=== PATIENT | female | born 1955 | race Caucasian/White ===

== ENCOUNTER 2018-08-02 14:00 | Emergency (ER) | payer OTHER, MEDICAID, SELFPAY ==
--- NOTE | 2018-08-02 14:05 | DI.CT.S_ITS ---
PROCEDURE: CT HEAD/BRAIN WO CON INDICATIONS: slurring etoh fall TECHNIQUE: Noncontrast 4.5 mm thick angled axial sections acquired from the foramen magnum to the vertex, with coronal and sagittal reformats. For radiation dose reduction, the following was used: automated exposure control, adjustment of mA and/or kV according to patient size. COMPARISON: None. FINDINGS: Image quality: Suboptimal, related to motion artifact along the superior aspect of the head. CSF spaces: Basal cisterns are patent. No extra-axial fluid collections. Ventricles are normal in size and shape. There is mild parenchymal volume loss. Brain: No midline shift. No intracranial masses or hemorrhage. Coello-white matter interface is normal. Skull and face: Calvarium and visualized facial bones are intact, without suspicious lesions. Sinuses: Visualized sinuses and mastoids are clear. IMPRESSION: Limited CT, related to motion artifact. No acute intracranial hemorrhage. Dictated by: Shawn Dent M.D. on 08/02/2018 at 13:29 Approved by: Shawn Dent M.D. on 08/02/2018 at 13:31
[2018-08-02 14:11] VITALS: BP 129/60; PULSE 79; RESP 22; O2SAT 97
[2018-08-02 14:47] LABS: Basophils Percent Auto 1.6 % (0-2); Eosinophils Percent Auto 0.6 % (2-4); Hematocrit 40.8 % (36-46); Lymphocytes Percent Auto 42.4 % (25-40); Mean Corpuscular HGB Conc 34.4 % (30-36); Mean Corpuscular Hemoglobin 37.4 PG (26-34); Mean Corpuscular Volume 108.9 fL (80-100); Monocytes Percent Auto 10.8 % (3-14); Neutrophils Absolute Auto 2200 /uL (3000-5900); Neutrophils Percent Auto 44.6 % (50-75); Platelet Count 148 X10^3/uL (150-400); Red Blood Cell Count 3.74 X10^6/uL (4.0-5.2); Red Cell Distribution Width 14.7 % (11.6-14.8); White Blood Cell Count 4.9 X10^3/uL (4.5-11.0)
[2018-08-02 14:49] LABS: Add Manual Diff / Slide Review SLIDE REVIEW
[2018-08-02 14:56] LABS: Prothrombin Time 10.2 SECONDS (10.1-12.7)
[2018-08-02 14:58] LABS: PTT Partial Thromboplastin Tim 33 SECONDS (26.4-36.2)
[2018-08-02 15:00] LABS: Alanine Aminotransferase 41 IU/L (9-52); Albumin 4.3 g/dL (3.5-5.0); Albumin Globulin Ratio 1.6 (1.0-2.8); Alkaline Phosphatase 75 U/L (38-126); Aspartate Aminotransferase 79 IU/L (14-36); BUN Creatinine Ratio 4.3 (6-22); Bilirubin Total 0.6 mg/dL (0.2-1.3); Blood Urea Nitrogen 3 mg/dL (7-17); Calcium 8.3 mg/dL (8.4-10.2); Carbon Dioxide 27 mmol/L (22-32); Chloride 101 mmol/L (98-107); Estimated Glomerular Filt Rate > 60.0 mL/min (>60); Globulin 2.7 g/dL (1.7-4.1); Glucose 105 mg/dL (80-110); Lipase 167 U/L (23-300); Sodium 144 mmol/L (137-145)
[2018-08-02 15:08] LABS: HEMOLYSIS 95 (0-50)
[2018-08-02 15:09] LABS: Ethanol (ETOH) 418 mg/dL
[2018-08-02 15:10] LABS: Potassium 4.5 mmol/L (3.4-5.1)
[2018-08-02 15:15] LABS: Macrocytosis 1+
--- NOTE | 2018-08-02 16:00 | PC.NURSE ---
Pt pulled IV out and states she is ready to leave. I'M a doctor. I think I know. returns to bedside and is s/w pt about staying
--- NOTE | 2018-08-02 16:21 | ED_ITS ---
HPI - Fall General Chief Complaint: Fall Stated Complaint: GLF Time Seen by Provider: 08/02/18 14:05 Source: patient, family and EMS Mode of arrival: EMS Limitations: altered mental status ( intoxication) History of Present Illness HPI Narrative: patient is a 63-year-old female who presents after a ground level fall. Her heard her fall. She was noted to have slurring of speech and alcohol on her breath by EMS. She has no focal deficits she is not on antiplatelet or anticoagulation medication. She has no other injuries at this time. According to both and patient she was diagnosed with stage III breast cancer number of months ago she has not yet followed up. She remains extremely scared in denial about this diagnosis. Her has been trying to get her to go to the doctor's office however she will not go. Her drinking has likely increased because of this. MD complaint: fall Onset (ago): minute(s) Fall from: standing Fall witnessed: no Place fall occurred: home Loss of consciousness: none Context: alcohol use Related Data Home Medications Medication Instructions Recorded Confirmed alprazolam 0.25 mg PO DIRECTED 08/02/18 08/02/18 gabapentin 300 mg PO TID 08/02/18 08/02/18 Allergies Allergy/AdvReac Type Severity Reaction Status Date / Time Penicillins [PENICILLINS] Allergy Intermediate RASH, Unverified 12/28/17 12:33 NAUSEA, HIVES codeine [CODEINE] Allergy Mild RASH/ITCHIN Unverified 12/28/17 12:33 G lactose Allergy Intermediate GI upset. Uncoded 12/28/17 12:33 Does tolerate cooked milk products Review of Systems Review of Systems All systems reviewed & are unremarkable except as noted in HPI and below Constitutional Denies chills, Denies fever(s), Denies lethargy and Denies weakness Cardiovascular Denies chest pain, Denies irregular heart rhythm, Denies lightheadedness, Denies palpitations, Denies dyspnea, Denies dyspnea on exertion and Denies orthopnea Respiratory Denies cough, Denies dyspnea, Denies dyspnea on exertion and Denies wheezing Gastrointestinal Gastrointestinal: Denies abdominal pain, Denies change in bowel habits, Denies diarrhea, Denies nausea and Denies vomiting Musculoskeletal Denies back pain, Denies muscle weakness, Denies numbness and Denies tingling Integumentary/Breasts Denies pruritus, Denies erythema, Denies rash and Denies wounds Neurologic Denies numbness, Denies tingling and Denies weakness Psychiatric Reports as per HPI Endocrine Denies palpitations Allergic/Immunologic Denies wheezing Exam Initial Vital Signs Initial Vital Signs: Vital Signs Pulse Rate 79 08/02/18 14:11 Respiratory Rate 22 08/02/18 14:11 Blood Pressure 129/60 08/02/18 14:11 Pulse Oximetry 97 08/02/18 14:11 Const General: cooperative and intoxicated appearing ( slurring of speech) Nutritional Appearance: average body habitus Orientation: alert and awake [facility] Head: normal to inspection, normocephalic, atraumatic, No abrasion, No Moreno's sign, No palpable skull fracture and No scalp lesion Ears: hearing grossly normal bilaterally Nose: external nose normal Mouth: oral mucosae normal Eyes General: appearance normal, both eyes and all related structures Pupils: PERRL EOM: EOM intact bilaterally Neck Neck: normal visual inspection, full ROM, no meningeal signs and trachea midline Chest Chest: normal inspection of the chest Resp Effort & Inspection: normal respiratory effort and able to speak in complete sentences Auscultation: clear to auscultation bilaterally, no rales and no rhonchi Cardio Rate: regular rate Rhythm: regular rhythm Heart Sounds: S1 normal and S2 normal GI Palpation: soft, No firm, No tender and No ascites Back/Spine/Pelvis Back: normal to inspection, No back tenderness and No crepitance Skin General: no rashes or lesions noted, No jaundice and No petechiae Neuro General: alert, awake and oriented x3 Cranial Nerves: CN's II-XI intact bilaterally Speech: abnormal speech ( slurring) Extrem General: normal to inspection, full ROM and capillary refill normal Right upper extremity: normal to inspection Left upper extremity: normal to inspection Right lower extremity: normal to inspection Left lower extremity: normal to inspection [facility] Medical History Alcoholism (Acute) Breast cancer (Acute) Social History alcohol intake: current Course Orders Ordered: ED Orders 08/02/18 14:05 CT head/brain wo con Stat EKG-12 Lead Stat 08/02/18 14:37 Complete Blood Count AUTO DIFF Stat Comprehensive Metabolic Panel Stat Ethanol (ETOH) Stat Lipase Stat Partial Thromboplastin Time Stat Prothrombin Time INR Stat Vital Signs - 8 hr 08/02/18 14:11 08/02/18 16:30 Pulse Rate 79 76 Respiratory Rate 22 15 Blood Pressure 129/60 120/74 Pulse Oximetry 97 99 MDM - Fall Medical Records Attestation: I reviewed the patient's medical records. Lab Data Attestation: I reviewed the patient's lab results. Result diagrams: 08/02/18 14:37 08/02/18 14:37 Lab Results 08/02/18 08/02/18 08/02/18 Range/Units 14:37 14:37 14:37 WBC 4.9 (4.5-11.0) X10^3/uL RBC 3.74 L (4.0-5.2) X10^6/uL Hgb 14.0 (12.0-16.0) g/dL Hct 40.8 (36-46) % MCV 108.9 H (80-100) fL MCH 37.4 H (26-34) PG MCHC 34.4 (30-36) % RDW 14.7 (11.6-14.8) % Plt Count 148 L (150-400) X10^3/uL Neut % (Auto) 44.6 L (50-75) % Lymph % (Auto) 42.4 H (25-40) % Caroline % (Auto) 10.8 (3-14) % Eos % (Auto) 0.6 L (2-4) % Baso % (Auto) 1.6 (0-2) % Neut # (Auto) 2200 L (2060-5836) /uL RBC Morphology See below Macrocytosis 1+ H PT 10.2 (10.1-12.7) SECONDS INR 1.0 (0.9-1.3) APTT 33 (26.4-36.2) SECONDS Sodium 144 (137-145) mmol/L Potassium 4.5 (3.4-5.1) mmol/L Chloride 101 (98-107) mmol/L Carbon Dioxide 27 (22-32) mmol/L BUN 3 L (7-17) mg/dL Creatinine 0.70 (0.52-1.04) mg/dL Estimated GFR > 60.0 (>60) mL/min BUN/Creatinine Ratio 4.3 L (6-22) Glucose 105 (80-110) mg/dL Calcium 8.3 L (8.4-10.2) mg/dL Total Bilirubin 0.6 (0.2-1.3) mg/dL AST 79 H (14-36) IU/L ALT 41 (9-52) IU/L Alkaline Phosphatase 75 (38-126) U/L Total Protein 7.0 (6.3-8.2) g/dL Albumin 4.3 (3.5-5.0) g/dL Globulin 2.7 (1.7-4.1) g/dL Albumin/Globulin Ratio 1.6 (1.0-2.8) Lipase 167 (23-300) U/L Ethyl Alcohol 418 H* mg/dL Imaging Data CT scan - head: Radiologist's impression: Radiology report: Limited CT related to motion artifact. No acute intracranial hemorrhage. For some reason I see report on the PACS system but it did not transfer over to [facility]. ECG Data Attestation: I personally reviewed and interpreted this ECG as follows: Prior ECG tracings: available for review Interpretation: sinus rhythm rate [address] changes no T-wave inversions here interval 164 QRS 96 QTC 417 similar to previous EKG MDM Narrative Medical decision making narrative: discussed at length with and patient I strongly recommended that she decrease her drinking and get to an oncologist so she can start treatment for her breast cancer. She now has a steady gait and is able to walk around the emergency department. is willing to take her home. Discharge Plan Departure Patient Disposition: Home Clinical Impression: Alcohol intoxication Discharge Date/Time: 08/02/18 16:32 Interventions: ED Discharge Assessment Last Done: 08/02/18 16:30 Instructions: Alcohol Use Disorder Activity Restrictions/Additional Instructions: *You have been diagnosed with ALCOHOL INTOXICATION *What to do: HIGHLY RECOMMENDED THAT YOU SEE HER DOCTORS IN REGARDS TO YOUR BREAST CANCER IN [place]OP[place] TO GET THIS UNDER CONTROL BEFORE IT BECOMES TOO LATE. ALSO RECOMMEND TO DECREASE OR STOP HERE DRINK *Continue to take medications as directed *Follow up with your primary care provider in 2-3 days *Return to ER if you should have INCREASED FALLS, SHORTNESS OF BREATH, CONFUSION or any new, worsening or concerning symptoms Prescriptions: No Action alprazolam 0.25 mg tablet 0.25 mg PO DIRECTED RF: 0 gabapentin 300 mg capsule 300 mg PO TID RF: 0
[2018-08-02 16:30] VITALS: BP 120/74; PULSE 76; RESP 15; O2SAT 99
== END 2018-08-02 16:32 | disposition home or self-care (01) ==
PROVIDERS: Emergency Provider Emergency Medicine
DX: F10.929 Alcohol use, unspecified with intoxication, unspecified (principal); W18.30XA Fall on same level, unspecified, initial encounter
CPT/HCPCS: 70450; 80053; 80320; 83690; 85025; 85610; 85730; 93005; 99283; 99285

== ENCOUNTER 2018-08-03 11:47 | Emergency (ER) | payer OTHER, MEDICAID, SELFPAY ==
[2018-08-03 11:59] VITALS: BP 160/87; PULSE 84; RESP 20; TEMP 36.6; O2SAT 97; BMI 22.8
--- NOTE | 2018-08-03 12:07 | ED.ALCOHOL ---
HPI - Alcohol <PABLO Crow - Last Filed: 08/03/18 21:42> General Chief Complaint: Toxicology Problem Stated Complaint: ETOH Intoxication Time Seen by Provider: 08/03/18 12:07 Source: patient Mode of arrival: ambulatory Limitations: no limitations History of Present Illness HPI narrative: 63-year-old female with history of breast cancer who is a nonsmoker here for complaint of alcohol abuse. She states she has been drinking heavily as of lately as she states she is having a hard time dealing with the diagnosis of breast cancer. She was seen here yesterday for similar symptoms. She was released home. She states she currently does have an appointment with [facility] and will follow up with them as she has not been seek treatment for her breast cancer. She states she is having difficulty coping with her medical conditions and life in general. She reports that she had several drinks this morning. She also uses alprazolam for anxiety and has states she has been doubling up on the alprazolam as of lately. She denies any suicidal ideation. She denies any homicidal ideation. She is not complaining of any physical complaints at this time. Related Data Home Medications Medication Instructions Recorded Confirmed alprazolam 0.25 mg PO DIRECTED 08/02/18 08/03/18 gabapentin 300 mg PO TID 08/02/18 08/03/18 Allergies Allergy/AdvReac Type Severity Reaction Status Date / Time Penicillins [PENICILLINS] Allergy Intermediate RASH, Verified 08/03/18 12:02 NAUSEA, HIVES codeine [CODEINE] Allergy Mild RASH/ITCHIN Verified 08/03/18 12:02 G lactose Allergy Intermediate GI upset. Uncoded 12/28/17 12:33 Does tolerate cooked milk products Review of Systems <PABLO Crow - Last Filed: 08/03/18 21:42> Constitutional Comments: Alcohol intoxication and difficulty coping Eyes Denies change in vision, Denies eye discharge, Denies irritation and Denies loss of vision ENT Ears, Nose, Mouth, and Throat: Denies change in voice, Denies neck pain and Denies sore throat Cardiovascular Denies chest pain, Denies irregular heart rhythm, Denies lightheadedness, Denies palpitations, Denies dyspnea, Denies dyspnea on exertion and Denies orthopnea Respiratory Denies cough, Denies dyspnea, Denies dyspnea on exertion and Denies wheezing Gastrointestinal Gastrointestinal: Denies abdominal pain, Denies change in bowel habits, Denies diarrhea, Denies nausea and Denies vomiting Genitourinary Denies hematuria, Denies flank pain, Denies urinary incontinence and Denies urinary urgency Musculoskeletal Denies neck pain Integumentary/Breasts Denies pruritus, Denies erythema, Denies rash and Denies wounds Neurologic Denies loss of vision Psychiatric Reports as per HPI Endocrine Denies palpitations Hematologic/Lymphatic Denies easy bruising Allergic/Immunologic Denies wheezing Exam <PABLO Crow - Last Filed: 08/03/18 21:42> Initial Vital Signs Initial Vital Signs: Vital Signs Temperature 97.8 F 08/03/18 11:59 Pulse Rate 84 08/03/18 11:59 Respiratory Rate 20 08/03/18 11:59 Blood Pressure 160/87 H 08/03/18 11:59 Pulse Oximetry 97 08/03/18 11:59 Const General: cooperative, well developed and intoxicated appearing Nutritional Appearance: well nourished Orientation: alert, awake, oriented x3 and not confused HENMN Mouth: oral mucosae normal and moist mucous membranes Eyes Conjunctivae: conjunctivae normal Sclera: sclerae normal Pupils: PERRL EOM: EOM intact bilaterally Resp Effort & Inspection: normal respiratory effort, able to speak in complete sentences, no respiratory distress and no use of accessory muscles Auscultation: clear to auscultation bilaterally, no rales, no rhonchi and no wheezes Cardio Rate: regular rate Rhythm: regular rhythm Heart Sounds: no click, no gallops, no murmurs and no rubs Pulses: normal peripheral pulses GI Inspection: non-distended Palpation: soft, no hepatosplenomegaly, No guarding, No pulsatile mass and No tender Auscultation: normal bowel sounds Neuro General: alert, oriented x3, gait normal and no focal motor deficits Speech: speech normal Extrem General: full ROM, no clubbing, cyanosis or edema, no pedal edema and no calf tenderness Psych Appearance: grossly normal Mental Status: other Speech and Movement: slurred speech Mood: other Attitude: cooperative Thought Content: no homicidality and suicidality <Nemo Gonzales DO - Last Filed: 08/04/18 12:55> Initial Vital Signs Initial Vital Signs: Vital Signs Temperature 97.8 F 08/03/18 11:59 Pulse Rate 84 08/03/18 11:59 Respiratory Rate 20 08/03/18 11:59 Blood Pressure 160/87 H 08/03/18 11:59 Pulse Oximetry 97 08/03/18 11:59 Course <PABLO Crow - Last Filed: 08/03/18 21:42> Orders Ordered: ED Orders 08/03/18 13:15 Urine Drug Screen, Rapid Stat 08/03/18 13:28 Ethanol (ETOH) Stat Vital Signs - 8 hr 08/03/18 11:59 Temperature 97.8 F Pulse Rate 84 Respiratory Rate 20 Blood Pressure 160/87 H Pulse Oximetry 97 <Nemo Gonzales DO - Last Filed: 08/04/18 12:55> Orders Ordered: ED Orders 08/03/18 13:15 Urine Drug Screen, Rapid Stat 08/03/18 13:28 Ethanol (ETOH) Stat Vital Signs - 8 hr 08/03/18 11:59 Temperature 97.8 F Pulse Rate 84 Respiratory Rate 20 Blood Pressure 160/87 H Pulse Oximetry 97 MDM - Alcohol <PABLO Crow - Last Filed: 08/03/18 21:42> Lab Data Labs: Lab Results 08/03/18 08/03/18 Range/Units 13:15 13:28 Urine Opiates Screen Negative (Negative) Ur Oxycodone Screen Negative (Negative) Urine Methadone Screen Negative (Negative) Ur Barbiturates Screen Negative (Negative) U Tricyclic Antidepress Negative (Negative) Ur Phencyclidine Scrn Negative (Negative) Ur Amphetamines Screen Negative (Negative) U Methamphetamines Scrn Negative (Negative) Ur MDMA Scrn (Ecstasy) Negative (Negative) U Benzodiazepines Scrn Positive H (Negative) Urine Cocaine Screen Negative (Negative) U Marijuana (THC) Screen Positive H (Negative) Ethyl Alcohol 296 mg/dL MDM Narrative Medical decision making narrative: Patient blood alcoholl today was 296 she was in the emergency room a few hours after this level was obtained. She was able to speak to social workers given resources for counseling and she states that she will seek these out. Discussed with patient following up with [facility] for further treatment and evaluation patient states that she will pursue that as well. Patient states she feels like she wants to go home now. She is able to ambulate without any complications. She appears to be able to make sound decisions. Family is with her and can take her home and will be able to look out for her tonight at home. She is released for further evaluation. Follow up with primary care provider. <Nemo Gonzales, - Last Filed: 08/04/18 12:55> Lab Data Labs: Lab Results 08/03/18 08/03/18 Range/Units 13:15 13:28 Urine Opiates Screen Negative (Negative) Ur Oxycodone Screen Negative (Negative) Urine Methadone Screen Negative (Negative) Ur Barbiturates Screen Negative (Negative) U Tricyclic Antidepress Negative (Negative) Ur Phencyclidine Scrn Negative (Negative) Ur Amphetamines Screen Negative (Negative) U Methamphetamines Scrn Negative (Negative) Ur MDMA Scrn (Ecstasy) Negative (Negative) U Benzodiazepines Scrn Positive H (Negative) Urine Cocaine Screen Negative (Negative) U Marijuana (THC) Screen Positive H (Negative) Ethyl Alcohol 296 mg/dL Discharge Plan Departure Patient Disposition: Home Clinical Impression: Alcohol intoxication Discharge Date/Time: 08/03/18 16:13 Interventions: ED Discharge Assessment Last Done: 08/03/18 16:11 Instructions: Alcohol and Stress: There are Safer Ways to Reading Activity Restrictions/Additional Instructions: Utilize resources provided by social media marketing specialist for counseling help. Follow up with primary care provider. Follow-up with [facility] for further evaluation and treatment. For any worsening symptoms return to the emergency room. Recommend reducing amount alcohol use. For any worsening symptoms return to the emergency room. Prescriptions: No Action alprazolam 0.25 mg tablet 0.25 mg PO DIRECTED RF: 0 gabapentin 300 mg capsule 300 mg PO TID RF: 0 Referrals: [facility] [Provider Group] <Nemo Gonzales, - Last Filed: 08/04/18 12:55> Cosign ED Attending Valarieature Attestation: I was immediately available in the department for consultation. Documentation has been reviewed. I agree with assessment and plan.
--- NOTE | 2018-08-03 13:00 | PC.NURSE ---
Attempt to obtain breath ETOH. Pt declines with multiple attempts. With Hellen SINGH, retry. Pt unable to exhale for the needed period of time.
[2018-08-03 13:25] LABS: Urine Amphetamines Negative (Negative); Urine Barbiturates Negative (Negative); Urine Benzodiazepines Positive (Negative); Urine Cocaine Negative (Negative); Urine MDMA Negative (Negative); Urine Methadone Negative (Negative); Urine Methamphetamines Negative (Negative); Urine Morphine/Opi cutoff 2000 Negative (Negative); Urine Oxycodone Negative (Negative); Urine Phencyclidine Negative (Negative); Urine Tetrahydrocannabinol Positive (Negative); Urine Tricyclic Antidepressant Negative (Negative)
[2018-08-03 13:47] LABS: Ethanol (ETOH) 296 mg/dL
--- NOTE | 2018-08-03 16:21 | CM.SWNOTE ---
Presenting Problem: Pt is a 63 yo female with a BAL of 298 who came to the ED after calling her insurance company requesting information on proton therapy. She stated that she believes that they called 911 because she was drinking and has stage 3 breast cancer. She identified several stressors which were mentioned in other documentation. Support System/ providers Pt identified her 4 children; She mentioned Migdalia by name, stating hse lives in [place] and works at [employer]. Pt lives with Anderson SMITH and has been with him for 5 years. Pt reported that her Oncologist is Dr Genny Bailey, PCP Dr Judy Nolan ( [facility]). She has an appt with [facility]. Stressors/ ongoing concerns: Pt reported that she does not want to get tx until mid-September as she has plans for the holidays and trips to [place] and [place] planned. It was unclear whether pt was diagneosed 1 year ago or a few months ago. SHe reported that she received the dx a year ago, but kept it to herself as she did not want to deal with it or concern others. RECREATION FACILITIES SUPERVISOR inquired how she has dealt with cries in the past. Pt reported that she does nto feel as though she has had anything as difficult as this as feels as though she had a breaking point. She was tearful and stated that she did n ot know how to cope. Several times she asked what would you do? Pt was very clear about her desire to make her own decisions, not get treatment until mid-September, and yet stated her fear of the treatment and worry that she would not live. RECREATION FACILITIES SUPERVISOR pointed out inconsistencies in that she stated that she wants to live, but is waiting on the treatment after being diagnosed with stage 3 breast cancer. Interventions: RECREATION FACILITIES SUPERVISOR used a combination of compassionate and active listening, motivational interviewing and CBT to challenge some of her thinking. RECREATION FACILITIES SUPERVISOR also assisted with problem solving and provided resources. RECREATION FACILITIES SUPERVISOR discussed and demonstrated breathing techniques, but pt could not focus on this and was not interested. Substance Abuse Discussed pt's use and abuse of ETOH. She reported that in the last 7-10 days she was drinking 7-10 drinks per day. This has not been verified and it is not known how much pt has been drinking. She denied a hx of withdrawal issues, seizures or DTs. Pt's daughter called and informed SW that pt had not used ETOH in 8 years, but in the last couple of days has drunk excessively. Her assessment was that pt is using this as a coping mechanism. [facility] did not acknolwedge that pt was in the ED so this caller provided this information without confirmation that her mother was here. Pt stated that she will not be drinking upon return home. Mental Status Exam: Pt was A/O x 3. Her mood was sad with frequent tears. Affect was labile. Speech was normal for rate and rhythm. Story was inconsistent, but this was due to her being under the influence of ETOH. Pt denied SI and HI. Memory not assessed, but seemed able to give a fairly believable hx. Plan: Pt to return home with SO. She denied the offer for inpt rehab. RECREATION FACILITIES SUPERVISOR was willing to contact the crisis center and to see if there was a bed in a detox facility, but pt declined the offer and went home. No further SW needs noted. Discharge Planning/Care Management ED Crisis Response Assessment Start: 08/03/18 16:08 Freq: Status: Active Protocol: Document 08/03/18 16:08 (Rec: 08/03/18 16:21 [id number]) ED Crisis Response Assessment FINANCE VICE PRESIDENT Assessment Type Substance Abuse Other Reason for FINANCE VICE PRESIDENT Referral Pt was in the ED yesterday due to a fall and BAL of 419. Today she returned as she stated that she called her insurance company asking who covered proton therapy and they sent 911. She said she believes it was due to her drinking. Staff referred as pt requested help dealing with stressors and was interested in inpt treatment. Referred by ED staff ( RN and provider) Presenting Problem Pt is a 63 yo female who arrived to ED by EMS. She reported that she has recently had numerous stressors which she described as a dx of stage 3 breast cancer, grandson with muscular dystrophy, former at for open heart sx, and a 16 year old grandaughter. Pt stated many times that she was scared. When [facility] inquired about this fear, she reported that she was scared of the treatment. Mental health diagnosis ETOH abuse, anxiety unspecified VOA/CMS check No Suicidal thoughts No Past Suicidal thoughts No Current Suicidal thoughts No Prior Suicide attempts No Current plan for self harm No Thoughts of harm to others No Past thoughts of harm to others No Current thoughts of harming others No Current plan to harm others No Current Risk factors Substance abuse Relevant Medical History Diagnosis of stage 3 breast cancer Crisis Plan Pt's SO came to pick her up. He did not identify any concern bringing her home. She allwoed RECREATION FACILITIES SUPERVISOR to share what we discussed; I informed hm that pt has agreed not to drink and advised him not to have ETOH in the home. It was unclear if he was willing or interested in doing this, but was in agreement with supporting her desire not to drink. Resources Provided Pt was provided with the name of a local therapist as she requested someone pedro Connellyes. SHe said she could pay out of pocket, but since hse has Medicaid RECREATION FACILITIES SUPERVISOR researched and fond someone who accepts her insurance. Pt was also given a handout on the Crisis Center, and a list of public mental health and subtance sbuse services in [facility]. Action taken Sent home: family/friends Additional Comment Pt denied any SI or any thought of self-harm.
== END 2018-08-03 16:13 | disposition home or self-care (01) ==
PROVIDERS: Emergency Provider Nurse Practitioner Family
DX: F10.929 Alcohol use, unspecified with intoxication, unspecified (principal)
CPT/HCPCS: 36415; 80305; 80320; 99282; 99283

== ENCOUNTER → 2018-08-15 10:34 | Outpatient (CLI) | payer OTHER, MEDICAID, SELFPAY ==
[2018-08-15 11:33] LABS: Basophils Percent Auto 1.2 % (0-2); Eosinophils Percent Auto 0.4 % (2-4); Hematocrit 41.1 % (36-46); Hemoglobin 13.9 g/dL (12.0-16.0); Lymphocytes Percent Auto 26.1 % (25-40); Mean Corpuscular HGB Conc 33.9 % (30-36); Mean Corpuscular Hemoglobin 37.3 PG (26-34); Monocytes Percent Auto 16.1 % (3-14); Neutrophils Absolute Auto 3500 /uL (3000-5900); Neutrophils Percent Auto 56.2 % (50-75); Platelet Count 333 X10^3/uL (150-400); Red Blood Cell Count 3.74 X10^6/uL (4.0-5.2); Red Cell Distribution Width 14.8 % (11.6-14.8); White Blood Cell Count 6.3 X10^3/uL (4.5-11.0)
[2018-08-15 11:49] LABS: Add Manual Diff / Slide Review SLIDE REVIEW
[2018-08-15 12:23] LABS: Macrocytosis 2+
[2018-08-15 12:42] LABS: Alanine Aminotransferase 32 IU/L (9-52); Albumin 4.2 g/dL (3.5-5.0); Albumin Globulin Ratio 1.6 (1.0-2.8); Alkaline Phosphatase 55 U/L (38-126); Aspartate Aminotransferase 32 IU/L (14-36); Bilirubin Total 0.3 mg/dL (0.2-1.3); Blood Urea Nitrogen 8 mg/dL (7-17); Calcium 9.4 mg/dL (8.4-10.2); Carbon Dioxide 28 mmol/L (22-32); Chloride 104 mmol/L (98-107); Estimated Glomerular Filt Rate > 60.0 mL/min (>60); Globulin 2.7 g/dL (1.7-4.1); Glucose 67 mg/dL (80-110); HEMOLYSIS < 15 (0-50); Potassium 5.2 mmol/L (3.4-5.1); Sodium 145 mmol/L (137-145); Total Protein 6.9 g/dL (6.3-8.2)
[2018-08-15 13:03] LABS: Thyroid Stimulating Hormone 1.05 uIU/mL (0.47-4.68)
[2018-08-15 13:31] LABS: Vitamin B12 440 pg/mL (239-931)
== END ==
PROVIDERS: Visit Provider Internal Medicine
DX: F10.10 Alcohol abuse, uncomplicated (principal); R42 Dizziness and giddiness
CPT/HCPCS: 36415; 80053; 82607; 84443; 85025

== ENCOUNTER → 2018-09-01 08:45 | Outpatient (CLI) | payer OTHER, MEDICAID, SELFPAY ==
--- NOTE | 2018-09-01 | DI.MG.S_ITS ---
BILATERAL DIGITAL DIAGNOSTIC MAMMOGRAM 3D/2D: 09/01/2018 CLINICAL: Baseline exam. Right breast pain and lump. Family history of breast cancer. Right breast lump and pain noted by the patient for approximately 5 months. The lump is described as a PEA. The pain is described as SHARP. The patient states the there is no skin abnormality or discharge from either breast. No prior exams were available for comparison. The tissue of both breasts is heterogeneously dense. This may lower the sensitivity of mammography. There is a triangular marker overlying the skin of the upper outer right breast at the site of the patient's reported focal palpable painful abnormality. There is a 0.7 cm oval circumscribed mass in the upper outer right breast at middle depth near the overlying skin marker. IMPRESSION: INCOMPLETE: NEEDS ADDITIONAL IMAGING EVALUATION 0.7 cm oval circumscribed mass in the upper outer right breast at middle depth near the overlying skin marker at the site of the patient's reported focal palpable painful abnormality. Targeted diagnostic ultrasound recommended for further evaluation, which will be performed immediately following this exam. This exam was interpreted at Station ID: [id number]. NOTE: For mammograms, a report in lay terms will be sent to the patient. Approximately 15% of breast malignancies will not be visualized mammographically. In the management of a palpable breast mass, a negative mammogram must not discourage biopsy of a clinically suspicious lesion. Electronically Signed By: Randall Isaacs M.D. ecl/:09/01/2018 11:31:55 letter sent: Additional Imaging Needed ACR BI-RADS Category 0: Incomplete [id number]
--- NOTE | 2018-09-01 | DI.US.S_ITS ---
LIMITED ULTRASOUND OF RIGHT BREAST AND AXILLA: 09/01/2018 CLINICAL: Tender palpable right breast lumps (please note that at the time of diagnostic mammography the patient reported one location but indicated multiple locations during diagnostic ultrasound). Baseline exam. Right breast pain and lump. Family history of breast cancer. Right breast lump and pain noted by the patient for approximately 5 months. The lump is described as a PEA. The pain is described as SHARP. The patient states the there is no skin abnormality or discharge from either breast. Comparison is made to exam dated: 09/01/[address] [facility]. Real-time and Doppler ultrasound of the right breast upper outer quadrant and axilla regions were performed. Coello scale images of the real-time examination were reviewed. Targeted ultrasound was performed in the region of the patient's reported focal painful palpable abnormalities in the upper outer right breast. These are described as being at the 10 o'clock position 4 cm from the nipple, 11 o'clock position 5 cm from the nipple, 9:30 position position 12 cm from the nipple, and at 11 o'clock position 8 cm from the nipple. No underlying breast mass or abnormality is identified. Targeted ultrasound of the right axilla demonstrates no right axillary lymphadenopathy. There is a 0.7 x 0.6 x 0.2 cm oval circumscribed mass in the right breast at 10:30 position 9 cm from the nipple that demonstrates a possible fatty hilum, mildly increased through transmission/posterior acoustic enhancement, and no vascularity on Doppler ultrasound. This corresponds to the 0.7 cm mass the upper outer right breast at middle depth seen on diagnostic mammography. IMPRESSION: PROBABLY BENIGN 1) No ultrasound findings to explain patient's reported multiple focal painful palpable abnormalities in the upper outer quadrant of the right breast. Recommend clinical follow-up for further evaluation and management of the patient's reported symptoms. 2) There is a 0.7 cm probable intramammarly lymph node versus complicated cyst in the right breast at 10:30 position 9 cm from the nipple, which is probably benign. A follow-up diagnostic mammogram and targeted ultrasound in 6 months is recommended to demonstrate stability. The patient is advised to monitor her breasts and to return sooner for re-evaluation should she feel anything grow or change. This exam was interpreted at Station ID: [id number]. Electronically Signed By: Randall Isaacs M.D. ecl/:09/01/2018 12:05:58 letter sent: Followup Recommended Ultrasound BI-RADS: 3 Probably benign
== END ==
PROVIDERS: PCP Internal Medicine; Visit Provider Internal Medicine
DX: R92.8 Other abnormal and inconclusive findings on diagnostic imaging of breast (principal); N63.11 Unspecified lump in the right breast, upper outer quadrant; N64.4 Mastodynia; Z80.3 Family history of malignant neoplasm of breast
CPT/HCPCS: 76642; 77066; G0279

== ENCOUNTER 2019-03-04 21:23 | Emergency (ER) | payer OTHER, MEDICAID, SELFPAY ==
[2019-03-04] VITALS (9 sets, daily range): BP systolic 126–164; BP diastolic 56–97; PULSE 95–110; RESP 16–23; TEMP 37.1; O2SAT 97–100
[2019-03-04] MEDS: ALBUTEROL 2.5 MG/3 ML NEB (ADULT) 5 MG INH (21:25)
[2019-03-04] MEDS: EPINEPHrine 1 MG/ML AMPUL 0.3 MG IM (21:30)
[2019-03-04] MEDS: FAMOTIDINE 20 MG/50 ML PIGGYBACK 200 MG IV (21:33)
[2019-03-04] MEDS: SODIUM CHLORIDE 0.9% 1,000 ML 1000 ML IV (21:33)
[2019-03-04] MEDS: methylPREDNISolone 125 MG/2 ML VIAL IV (21:33)
[2019-03-04] MEDS: ONDANSETRON 4 MG/2 ML INJ IV (21:36)
--- NOTE | 2019-03-04 21:51 | PC.NURSE ---
Pt continues to have copious amounts of mucous shes spitting out. Voice at times sounds wet from mucuos
--- NOTE | 2019-03-04 22:32 | PC.NURSE ---
Pt continued to state wanting to throw up to help her feel better. Stuck her finger in her mouth and had 1 episode of emesis. Emesis mostly mucous with small amount of food. Reports still feeling nausea but is now longer stating she wants to throw up. Voice is less garbled. erythmia improving. swelling decreased to lower lip and right side of lower jaw. Tongue continues with swelling but pt states feels to be improving. lungs clear
--- NOTE | 2019-03-04 22:40 | ED_ITS ---
HPI - Allergic Reaction General Chief complaint: Allergic Reaction Stated complaint: Allergic Reaction Time Seen by Provider: 03/04/19 21:27 Source: EMS Mode of arrival: EMS Limitations: no limitations History of Present Illness HPI narrative: The patient is a 65-year-old female who presents with allergic reaction. She had 1 shrimp immediately started swelling in her face and difficulty swallowing her secretions. She is also quite intoxicated. EMS state that she was refusing to come. She did get 50 mg IM Benadryl and IM epinephrine here unable to start a line due to her being combative. He denies having any allergic reaction before. She has obvious facial swelling and increased secretions. MD complaint: allergic reaction, hives and facial swelling Onset (ago): minute(s) Exposure: food (Term) Symptoms: facial swelling, lip swelling, difficulty swallowing, difficulty breathing, hoarseness and nausea Severity: severe Treatment prior to arrival: benadryl and epinephrine Previous Allergic Reaction History: none Related Data Previous Rx's Medication Instructions Recorded epinephrine 0.3 mg IM Q15M PRN #2 each 03/05/19 prednisone 50 mg PO DAILY #5 tab 03/05/19 Allergies Allergy/AdvReac Type Severity Reaction Status Date / Time shrimp Allergy Severe Anaphylaxis Verified 03/04/19 21:27 Penicillins Allergy Verified 03/04/19 21:27 Review of Systems Review of Systems ROS Unobtainable: All systems reviewed & are unremarkable except as noted in HPI and below Constitutional Denies chills, Denies fever(s), Denies lethargy and Denies weakness Eyes Denies change in vision, Denies eye discharge, Denies irritation and Denies loss of vision ENT Ears, Nose, Mouth, and Throat: Reports as per HPI Cardiovascular Denies chest pain, Denies irregular heart rhythm, Denies lightheadedness, Denies palpitations and Denies orthopnea Respiratory Reports as per HPI Gastrointestinal Gastrointestinal: Denies abdominal pain, Denies change in bowel habits, Denies diarrhea, Denies nausea and Denies vomiting Genitourinary Denies hematuria, Denies flank pain, Denies urinary incontinence and Denies urinary urgency Musculoskeletal Denies back pain, Denies muscle weakness, Denies numbness and Denies tingling Integumentary/Breasts Reports skin swelling (Facial) Neurologic Denies loss of vision, Denies numbness, Denies tingling and Denies weakness Endocrine Denies palpitations PFSH Medical History Patient denies significant medical history (Acute) Social History (Updated 03/04/19 @ 22:52 by Nemo Gonzales DO) Smoking Status: Current every day smoker alcohol intake: current Social History Smoking Status: Current every day smoker alcohol intake: current Exam Initial Vital Signs Initial Vital Signs: Vital Signs Pulse Rate 106 H 03/04/19 21:23 Respiratory Rate 22 03/04/19 21:23 Blood Pressure 150/86 H 03/04/19 21:23 Pulse Oximetry 99 03/04/19 21:23 GENERAL: Patient is in moderate distress. She is anxious not managing her own secretions HEENT: Head atraumatic,EOMI, pupils reactive, face is swollen and erythematous more swollen on the right. She has swelling of her lips slight swelling of her tongue hoarseness of voice. Alcohol on breath CARDIOVASCULAR: Regular rate and rhythm without murmurs, rubs or gallops. RESPIRATORY: Breath sounds equal bilaterally, no wheezes rales or rhonchi. She continues to spit up all of her secretions. ABDOMEN: Soft, nontender. Normoactive bowel sounds all 4 quadrants. No guarding or rebound. EXTREMITIES: Normal range of motion, no clubbing or edema. Neurovascularly intact NEUROLOGICAL: Moving All extremities SKIN: Erythema and swelling noted on face no other hives or urticaria appreciated. Course Orders Ordered: Discontinued Medications Albuterol (Ventolin) 5 mg INH NOW ONE Stop: 03/04/19 21:25 Last Admin: 03/04/19 21:25 Dose: 5 mg Albuterol (Ventolin) 2.5 mg INH NOW ONE Stop: 03/04/19 21:28 Epinephrine HCl (Adrenalin) 0.3 mg IM NOW ONE Stop: 03/04/19 21:28 Last Admin: 03/04/19 21:30 Dose: 0.3 mg Sodium Chloride (Normal Saline 0.9%) 1,000 mls @ 1,000 mls/hr IV BOLUS ONE Stop: 03/04/19 22:26 Last Infusion: 03/05/19 00:33 Dose: 0 mls/hr Admin: 03/04/19 21:33 Dose: 1,000 mls/hr Famotidine (Pepcid) 20 mg in 50 mls @ 200 mls/hr IV NOW ONE Stop: 03/04/19 21:41 Last Infusion: 03/04/19 21:50 Dose: 0 mls/hr Admin: 03/04/19 21:33 Dose: 200 mls/hr Methylprednisolone (Solu-Medrol 125 Mg Vial) 125 mg IV NOW ONE Stop: 03/04/19 21:28 Last Admin: 03/04/19 21:33 Dose: 125 mg Ondansetron HCl (Zofran) 4 mg IV NOW ONE Stop: 03/04/19 21:36 Last Admin: 03/04/19 21:36 Dose: 4 mg Vital Signs - 8 hr 03/04/19 21:23 03/04/19 21:25 03/04/19 21:39 Temperature 98.8 F Pulse Rate 106 H 96 H 97 H Respiratory Rate 22 20 22 Blood Pressure 150/86 H Blood Pressure [Right Arm] 143/88 H Pulse Oximetry 99 97 99 03/04/19 21:56 03/04/19 22:01 03/04/19 22:10 Temperature Pulse Rate 106 H 107 H 103 H Respiratory Rate 17 19 23 Blood Pressure Blood Pressure [Right Arm] 140/97 H 160/69 H 152/79 H Pulse Oximetry 100 99 03/04/19 22:17 03/04/19 22:31 03/04/19 22:45 Temperature Pulse Rate 110 H 103 H 95 H Respiratory Rate 16 20 19 Blood Pressure Blood Pressure [Right Arm] 164/83 H 145/75 H 126/56 L Pulse Oximetry 98 100 97 03/05/19 00:36 Temperature 98.5 F Pulse Rate 93 H Respiratory Rate 16 Blood Pressure 114/59 L Blood Pressure [Right Arm] Pulse Oximetry 99 MDM - Allergic Reaction MDM Narrative Medical decision making narrative: Patient is given another dose of epinephrine. She is able to talk she feels like she has to throw up but it is actually just her secretions. She does not follow directions while she has significant amount of alcohol on her breath. Medications did start to help secretions improved patient's swelling improved. Her cognition also improved. Although she does have repetitive sentences. She is not sure exactly how this could happen. She states that she has been eating shellfish and trim for the last 4 days. She admits to using marijuana and CBD but she does not feel like that has been anything new either. She got stung by a bee yesterday in the hand. I think this is likely anaphylaxis due to shellfish. She had 1 shrimp and had significant swelling. She was given 2 doses of epinephrine and seems to have turned around. She is quite anxious she is up and walking around asking staff multiple questions. Overall she looks and is feeling much better. She is questioning she can go home she is actually quite adamant about going home. I have discussed with her at length and she understands that she has had a life-threatening anaphylactic reaction. I strongly recommend that she allergy testing. She states that her children both have epi pens she knows how to use 1. She is given EpiPen and prednisone. A [employer] cab was called for her. Critical Care Time Critical Care Time: Yes Total Critical Care Time: 30 Attestation: The high probability of a clinically significant, sudden or life threatening deterioration of the respiratory system(s) required my full and direct attention, intervention and personal management. The aggregate critical care time was [45] minutes. This time is in addition to time spent performing reported procedures but includes the following: [x] Data Review and interpretation [x] Patient assessment and monitoring of vital signs [x] Documentation [x] Medication orders and management Discharge Plan Departure Patient Disposition: Home Clinical Impression: Anaphylaxis Qualifiers: Encounter type: initial encounter Qualified Code(s): T78.2XXA - Anaphylactic shock, unspecified, initial encounter Angioedema Qualifiers: Encounter type: initial encounter Qualified Code(s): T78.3XXA - Angioneurotic edema, initial encounter Discharge Date/Time: 03/05/19 00:39 Interventions: ED Discharge Assessment Last Done: 03/05/19 00:36 Instructions: DI for Anaphylaxis Activity Restrictions/Additional Instructions: *You have been diagnosed with YOU HAD A SEVERE LIFE-THREATENING ALLERGIC REACTION, LIKELY TO SHELLFISH *What to do: STRONGLY RECOMMEND THAT YOU HAVE ALLERGY TESTING AND CARRY AN EPIPEN WITH YOU AT ALL TIMES *Continue to take medications as directed Prednisone 50 mg once a day for 5 days EpiPen carry with you as needed use if you have throat tightening, difficulty breathing, lip swelling tongue swelling etc *Follow up with your primary care provider in 2-3 days *Return to ER if you should have increased difficulty breathing, inability to swallow secretions, throat tightening or any new, worsening or concerning symptoms Prescriptions: New prednisone 50 mg tablet 50 mg PO DAILY Qty: 5 RF: 0 epinephrine 0.3 mg/0.3 mL auto-injector 0.3 mg IM Q15M PRN (Reason: anaphylaxis) Qty: 2 RF: 0
--- NOTE | 2019-03-04 22:48 | PC.NURSE ---
Entire time patient has been here, Pt has been repetitive. What could of happened is this a reaction? there is no reason for this to happen No matter how much the questions are answered continues with the same questions.
[2019-03-05 00:36] VITALS: BP 114/59; PULSE 93; RESP 16; TEMP 36.9; O2SAT 99
== END 2019-03-05 00:39 | disposition home or self-care (01) ==
PROVIDERS: Emergency Provider Emergency Medicine
DX: T78.2XXA Anaphylactic shock, unspecified, initial encounter (principal); T78.3XXA Angioneurotic edema, initial encounter
CPT/HCPCS: 36591; 94640; 96361; 96365; 96372; 96375; 99284; 99291; 99292; J0171; J2405; J2930; J7613

== ENCOUNTER → 2020-08-07 16:00 | Outpatient (CLI) | payer MEDICARE, MEDICAID, SELFPAY ==
--- NOTE | 2020-08-07 | DI.MG.S_ITS ---
BILATERAL DIGITAL SCREENING MAMMOGRAM 3D/2D WITH CAD: 08/07/2020 CLINICAL: Routine screening. Family history of breast cancer. Comparison is made to exams dated: 09/01/2018 mammogram and 09/01/2018 [facility]. There are scattered fibroglandular elements in both breasts. Current study was also evaluated with a Computer Aided Detection (CAD) system. There is a benign intramammary node in the right breast. No significant masses, calcifications, or other findings are seen in either breast. There has been no significant interval change. IMPRESSION: BENIGN There is no mammographic evidence of malignancy. A 1 year screening mammogram is recommended. This exam was interpreted at Station ID: [id number]. NOTE: For mammograms, a report in lay terms will be sent to the patient. Approximately 15% of breast malignancies will not be visualized mammographically. In the management of a palpable breast mass, a negative mammogram must not discourage biopsy of a clinically suspicious lesion. Electronically Signed By: Trung de la torre/carmen:08/07/2020 16:53:03 letter sent: Normal Exam ACR BI-RADS Category 2: Benign Finding(s) 3342F
== END ==
PROVIDERS: PCP Internal Medicine; Referring Provider Internal Medicine; Visit Provider Internal Medicine
DX: Z12.31 Encounter for screening mammogram for malignant neoplasm of breast (principal); Z80.3 Family history of malignant neoplasm of breast
CPT/HCPCS: 77063; 77067

== ENCOUNTER → 2023-02-21 10:34 | Outpatient (CLI) | payer MEDICARE, MEDICAID, SELFPAY ==
--- NOTE | 2023-02-21 | DI.MRI.S_ITS ---
PROCEDURE: MR LUMBAR SPINE WO CON INDICATIONS: Spondylolisthesis, lumbar region TECHNIQUE: Noncontrast sagittal T1 spin echo and T2 fast echo, sagittal STIR, and T2 fast spin echo through the lumbar spine. In cases with scoliosis, additional coronal T2 fast spin echo may be performed. COMPARISON: [facility] [place] [facility], CR, XR LUMBAR SPINE 2 OR 3 VIEWS, 11/20/2021, 16:16. FINDINGS: Image quality: Excellent. Alignment and Curvature: There is [id number] levoscoliosis of thoracolumbar spine with apex at T12-L1 level and [id number] dextroscoliosis of lower lumbar spine with apex at L4 level. 3 mm anterolisthesis of L4 on L5 is seen. Bone Marrow: Modic type 2 degenerative changes are noted throughout lumbar spine most notably at L1-2 through L3-4 levels. No acute vertebral body compression fractures. Spinal Cord: Conus medullaris terminates at the L1 level. Visualized cord demonstrates normal signal and size. Paraspinous Soft Tissues: No paravertebral masses. T12-L1: Loss of disc height and disc signal is seen. No significant central canal stenosis or neural foraminal narrowing. L1-L2: Loss of disc height and disc signal is seen. Central to right-sided disc bulge and bilateral facet arthrosis is noted causing mild central canal stenosis and moderate to severe right-sided neural foraminal narrowing. L2-L3: Loss of disc height and disc signal is seen. Diffuse disc bulge and bilateral facet arthrosis is noted with mild central canal stenosis and mild bilateral neural foraminal narrowing. L3-L4: Loss of disc height and disc signal. Central to left-sided disc bulge and bilateral facet arthrosis is seen causing moderate central canal stenosis, and moderate to severe left-sided neural foraminal narrowing. Mild right-sided neural foraminal narrowing is also seen. L4-L5: Loss of disc height and disc signal. Broad-based disc bulge and bilateral facet arthrosis with hypertrophy of ligamentum flavum is seen causing severe central canal stenosis and severe right-sided neural foraminal narrowing. Moderate left-sided neural foraminal narrowing is seen. L5-S1: Loss of disc height and disc signal. Diffuse disc bulge and bilateral facet arthrosis is seen, no significant central canal stenosis. Mild left-sided neural foraminal narrowing is noted. IMPRESSION: 1. Scoliosis of thoracolumbar spine as above. Grade 1 anterolisthesis of L4 on L5. No acute compression fracture. 2. Degenerative disc disease throughout lumbar spine causing various degrees of central canal stenosis and bilateral neural foraminal narrowing as described in detail above. Dictated by: Anthony Cruz M.D. on 02/21/2023 at 13:04 Approved by: Anthony Cruz M.D. on 02/21/2023 at 13:14
== END ==
PROVIDERS: PCP Internal Medicine; Referring Provider Orthopaedic Surgery Orthopaedic Surgery of the Spine; Visit Provider Orthopaedic Surgery Orthopaedic Surgery of the Spine
DX: M43.16 Spondylolisthesis, lumbar region (principal); M51.36 Other intervertebral disc degeneration, lumbar region; M48.061 Spinal stenosis, lumbar region without neurogenic claudication; M41.9 Scoliosis, unspecified
CPT/HCPCS: 72148